=== PATIENT | female | born 1965 | race Caucasian/White ===

== ENCOUNTER 2020-10-04 06:58 | Day surgery (SDC) | payer OTHER, SELFPAY ==
[~2020-10-04] VITALS: Ht 170.2 cm; Wt 81.6 kg
[2020-10-04] MEDS ORDERED: diphenhydrAMINE 50 MG/ML VIAL ONE (08:29)
[2020-10-04] MEDS ORDERED: fentaNYL citrate 0.05 MG/ML VIAL ONE (08:29)
[2020-10-04] MEDS ORDERED: MIDAZOLAM 5 MG/5 ML VIAL ONE (08:30)
[2020-10-04] MEDS ORDERED: LIDOCAINE 2% 100 MG/5 ML UJET TP ONE (08:30)
[2020-10-04] MEDS ORDERED: MIDAZOLAM 2 MG/2 ML VIAL IVP ONE (09:20)
[2020-10-04] MEDS ORDERED: diphenhydrAMINE 50 MG/ML VIAL IVP ONE (09:20)
[2020-10-04] MEDS ORDERED: fentaNYL citrate 0.05 MG/ML VIAL IVP ONE (09:20)
== END 2020-10-04 09:44 | disposition home or self-care (01) ==
LOC: MMU 06:58 → MDS 06:58
PROVIDERS: ATTEND Internal Medicine Gastroenterology
DX: Z12.11 Encounter for screening for malignant neoplasm of colon (principal); D12.5 Benign neoplasm of sigmoid colon; D12.8 Benign neoplasm of rectum; F41.9 Anxiety disorder, unspecified; I10 Essential (primary) hypertension; Z86.010 Personal history of colon polyps; Z80.0 Family history of malignant neoplasm of digestive organs; Z90.710 Acquired absence of both cervix and uterus; Z20.828 Contact with and (suspected) exposure to other viral communicable diseases
CPT/HCPCS: 45385; 88305; J1200; J2250; J3010; U0003

== ENCOUNTER 2021-12-19 08:02 | Day surgery (SDC) | payer OTHER, SELFPAY ==
[~2021-12-19] VITALS: Ht 170.2 cm; Wt 81.6 kg
[2021-12-19] MEDS ORDERED: fentaNYL citrate 0.05 MG/ML VIAL ONE (10:03)
[2021-12-19] MEDS ORDERED: MIDAZOLAM 5 MG/5 ML VIAL ONE (10:03)
[2021-12-19] MEDS ORDERED: LIDOCAINE 2% 100 MG/5 ML UJET TP ONE (10:03)
[2021-12-19] MEDS ORDERED: diphenhydrAMINE 50 MG/ML VIAL ONE (10:03)
[2021-12-19] MEDS ORDERED: diphenhydrAMINE 50 MG/ML VIAL IVP ONE (14:15)
[2021-12-19] MEDS ORDERED: fentaNYL citrate 0.05 MG/ML VIAL IVP ONE (14:15)
[2021-12-19] MEDS ORDERED: MIDAZOLAM 2 MG/2 ML VIAL IVP ONE (14:15)
== END 2021-12-19 11:40 | disposition home or self-care (01) ==
LOC: MOR 08:02 → MMU 08:03 → MOR 11:40
PROVIDERS: ATTEND Internal Medicine Gastroenterology
DX: Z09 Encounter for follow-up examination after completed treatment for conditions other than malignant neoplasm (principal); D12.5 Benign neoplasm of sigmoid colon; Z86.010 Personal history of colon polyps; I10 Essential (primary) hypertension; M19.90 Unspecified osteoarthritis, unspecified site; Z90.89 Acquired absence of other organs; Z90.710 Acquired absence of both cervix and uterus; Z79.899 Other long term (current) drug therapy
CPT/HCPCS: 88305; 88312; 88313; 88342; J1200; J2250; J3010